=== PATIENT | male | born 1995 | race Caucasian/White ===

== ENCOUNTER 2017-08-09 10:52 | Emergency (ER) | payer MEDICAID, SELFPAY ==
[2017-08-09 12:03] VITALS: BP 131/78; PULSE 74; RESP 16; TEMP 37.3; O2SAT 99; BMI 21.1
--- NOTE | 2017-08-09 13:19 | PC.NURSE ---
pt reported he had to leave. On his way to [place] and needs to get there. Aware he is next to be seen. Says he can't wait not one minute longer . I saw his hand. Told him it was very serious he be seen immediately because appeared to need I&D and antibiotics. Says he won't have times when he gets to [place] because I am leaving with the . Aware the is going to be very concerned by the look of his hand. He doesn't believe so. Says there is no time to stay and no time to go elsewhere. Quickly discussed the risk of foregoing treatment to his hand hand he walked towards the door. Aware this can progress and require IV antibiotic, hospitalization and even if infection were to get into blood stream and cause sepsis. States I know all about it as he walks out the door .
--- NOTE | 2017-08-12 07:12 | PC.NURSE ---
0610 lab called with report of positive wound culture with mrsa. Sent home on Bactrim which is suseptible
== END 2017-08-09 13:17 | disposition left against medical advice (07) ==
LOC: UTC 10:59
PROVIDERS: Emergency Provider Nurse Practitioner Family
DX: Z53.29 Procedure and treatment not carried out because of patient's decision for other reasons (principal); L02.91 Cutaneous abscess, unspecified
CPT/HCPCS: 99202

== ENCOUNTER 2017-08-09 23:49 | Emergency (ER) | payer MEDICAID, SELFPAY ==
[2017-08-09 23:58] VITALS: BP 125/75; PULSE 91; RESP 18; TEMP 36.7; O2SAT 99; BMI 21.1
--- NOTE | 2017-08-10 00:16 | [facility].EDGENADL ---
ED Disposition Clinical Impression: Abscess of skin or subcutaneous tissue Qualifiers: Site of cutaneous abscess: extremity Site of cutaneous abscess of extremity: upper extremity Laterality: left Qualified Code(s): L02.414 - Cutaneous abscess of left upper limb Disposition: Home, Self-Care Condition on Discharge: Good Instructions: Boil Additional Instructions: call pcp about culture results and follow up Prescriptions: Minocycline HCl 100 mg PO BID #20 tab Sulfamethoxazole/Trimethoprim [Bactrim DS tablet] 1 each PO BID #20 tab - Critical Care Critical Care Time: No Attestation: On 08/09/17, the high probability of a clinically significant, sudden or life threatening deterioration of the following system(s) required my full and direct attention, intervention and personal management. The time I documented below is in addition to time spent performing reported procedures but includes the following listed in this critical care notation. Medical Decision Making - Medical Records Medical records reviewed: Yes: I reviewed the patient's medical records. Vital Signs: 08/09/17 23:58 Temperature 98.1 F Temperature Source Temporal Artery Scan Pulse Rate [Right Radial] 91 H Respiratory Rate 18 Blood Pressure [Right Arm] 125/75 Blood Pressure Mean [Right Arm] 91 Blood Pressure Source [Right Arm] Automatic Cuff Blood Pressure Position [Right Arm] Sitting 02 Sat by Pulse Oximetry 99 Oxygen Delivery Method Room Air - Lab Data Lab results reviewed: Yes: I reviewed the patient's lab results. Orders (Tests/Meds): ED MEDICATIONS Generic Name Dose Route Start Last Admin Trade Name Freq PRN Reason Stop Dose Admin Sodium Chloride 10 ml 08/10/17 00:23 Saline Flush 10ml Syringe IV 09/09/17 00:22 NEEDED PRN Maintain IV Site Vancomycin HCl 1,250 mg 08/10/17 00:24 Vancomycin 1000mg Vial IV 08/10/17 00:25 CONSULT PHARMACY ONE ORDERS Category Date Time Status CBC [Complete Blood Count Auto Diff] Stat Lab 08/10/17 00:30 Received CMP [Comprehensive Metabolic Panel] Stat Lab 08/10/17 00:30 Received Wound Culture and Gram Stain Stat Micro 08/10/17 00:10 Received - Jalil Inquiry Pt receiving controlled substance: No General Adult HPI - General Chief complaint: PAIN Stated complaint: Bite/Sore on Left Hand Inflamation Time Seen by Provider: 08/10/17 00:17 Mode of Arrival: Ambulatory Source of Information: Patient, Significant Other, Medical Record Limitations: No Limitations Description of Symptoms (Recalled from ER Triage Doc. by RN): PT REPORTS NOTICED A BUMP ON THE TOP OF HIS LEFT HAND. HE REPORTS THE AREA WAS RED, SWOLLEN, HOT AND PAINFUL - History of Present Illness HPI narrative: over the last 2 days has swelling and reddness with pain to lt hand with no known injury and no def bite and denied iv drug use Onset (ago): day(s) Location: left, upper extremity Severity: moderate - Related Data Previous Rx's Medication Instructions Recorded Minocycline HCl 100 mg PO BID #20 tab 08/10/17 Sulfamethoxazole/Trimethoprim 1 each PO BID #20 tab 08/10/17 [Bactrim DS tablet] Allergies Allergy/AdvReac Type Severity Reaction Status Date / Time No Known Allergies Allergy Verified 08/10/17 00:[address] [facility] History I have reviewed the patient's past medical history: Yes - *Social History Alcohol Intake: current Alcohol Intake Frequency:: holidays/special occasions only - Psychiatric History Expresses thoughts of harming self/others: None Suicide Plan Description: No Plan ROS Obtained: Yes All systems reviewed & no additional complaints except as noted - Constitutional Denies fever(s) - Eyes Denies change in vision - Cardiovascular Denies chest pain, Denies chest pain at rest - Respiratory Denies cough - Gastrointestinal Denies abdominal pain - Musculoskeletal Denies joint pain - Integumentary/Breasts Reports redness, Reports wo
--- NOTE | 2017-08-10 00:19 | ED_ITS ---
ED Disposition Clinical Impression: Abscess of skin or subcutaneous tissue Qualifiers: Site of cutaneous abscess: extremity Site of cutaneous abscess of extremity: upper extremity Laterality: left Qualified Code(s): L02.414 - Cutaneous abscess of left upper limb Disposition: Home, Self-Care Condition on Discharge: Good Instructions: Boil Additional Instructions: call pcp about culture results and follow up Prescriptions: Minocycline HCl 100 mg PO BID #20 tab Sulfamethoxazole/Trimethoprim [Bactrim DS tablet] 1 each PO BID #20 tab - Critical Care Critical Care Time: No Attestation: On 08/09/17, the high probability of a clinically significant, sudden or life threatening deterioration of the following system(s) required my full and direct attention, intervention and personal management. The time I documented below is in addition to time spent performing reported procedures but includes the following listed in this critical care notation. Medical Decision Making - Medical Records Medical records reviewed: Yes: I reviewed the patient's medical records. Vital Signs: 08/09/17 23:58 Temperature 98.1 F Temperature Source Temporal Artery Scan Pulse Rate [Right Radial] 91 H Respiratory Rate 18 Blood Pressure [Right Arm] 125/75 Blood Pressure Mean [Right Arm] 91 Blood Pressure Source [Right Arm] Automatic Cuff Blood Pressure Position [Right Arm] Sitting 02 Sat by Pulse Oximetry 99 Oxygen Delivery Method Room Air - Lab Data Lab results reviewed: Yes: I reviewed the patient's lab results. Orders (Tests/Meds): ED MEDICATIONS Generic Name Dose Route Start Last Admin Trade Name Freq PRN Reason Stop Dose Admin Sodium Chloride 10 ml 08/10/17 00:23 Saline Flush 10ml Syringe IV 09/09/17 00:22 NEEDED PRN Maintain IV Site Vancomycin HCl 1,250 mg 08/10/17 00:24 Vancomycin 1000mg Vial IV 08/10/17 00:25 CONSULT PHARMACY ONE ORDERS Category Date Time Status CBC [Complete Blood Count Auto Diff] Stat Lab 08/10/17 00:30 Received CMP [Comprehensive Metabolic Panel] Stat Lab 08/10/17 00:30 Received Wound Culture and Gram Stain Stat Micro 08/10/17 00:10 Received - Jalil Inquiry Pt receiving controlled substance: No General Adult HPI - General Chief complaint: PAIN Stated complaint: Bite/Sore on Left Hand Inflamation Time Seen by Provider: 08/10/17 00:17 Mode of Arrival: Ambulatory Source of Information: Patient, Significant Other, Medical Record Limitations: No Limitations Description of Symptoms (Recalled from ER Triage Doc. by RN): PT REPORTS NOTICED A BUMP ON THE TOP OF HIS LEFT HAND. HE REPORTS THE AREA WAS RED, SWOLLEN , HOT AND PAINFUL - History of Present Illness HPI narrative: over the last 2 days has swelling and reddness with pain to lt hand with no known injury and no def bite and denied iv drug use Onset (ago): day(s) Location: left, upper extremity Severity: moderate - Related Data Previous Rx's Medication Instructions Recorded Minocycline HCl 100 mg PO BID #20 tab 08/10/17 Sulfamethoxazole/Trimethoprim 1 each PO BID #20 tab 08/10/17 [Bactrim DS tablet] Allergies Allergy/AdvReac Type Severity Reaction Status Date / Time No Known Allergies Allergy
--- NOTE | 2017-08-10 00:35 | PC.NURSE ---
SPOKE WITH DEBORA IN PHARMACY RELATED TO DOSE AT 0020
[2017-08-10 00:49] LABS: Basophils # 0.1 K/mm3 (0-0.2); Basophils % 0.5 % (0.1-2.0); Eosinophils # 0.3 K/mm3 (0.0-0.4); Hematocrit 44.8 % (42.0-52.0); Hemoglobin 15.2 g/dL (14.1-18.0); Lymphocytes # 3.6 K/mm3 (0.7-4.5); Mean Corpuscular HGB Conc 33.9 g/dL (31.8-35.4); Mean Corpuscular Hemoglobin 29.4 pg (27.0-31.2); Mean Corpuscular Volume 86.7 fl (80-94); Mean Platelet Volume 6.9 fl (7.4-10.4); Monocytes % 7.9 % (1.7-9.3); Neutrophils # 7.9 K/mm3 (1.8-7.8); Neutrophils % 61.6 % (37.0-80.0); Platelet Count 292 K/mm3 (142-424); Red Blood Count 5.17 M/mm3 (4.60-6.20); Red Cell Distribution Width 11.9 % (11.5-17.5); White Blood Count 12.8 K/mm3 (4.8-10.8)
--- NOTE | 2017-08-10 00:50 | PC.NURSE ---
VANCOMYCIN 1250 MG IV INFUSING AT THIS TIME STARTED 0040.
[2017-08-10 01:00] LABS: Alanine Aminotransferase 20 U/L (12-78); Albumin Level 4.4 gm/dL (3.4-5.0); Albumin/Globulin Ratio 1.3 (1.1-1.8); Alkaline Phosphatase 64 U/L (46-116); Anion Gap 10.1 mEq/L (5-15); Aspartate Amino Transferase 10 U/L (15-37); Bilirubin,Total 0.4 mg/dL (0.2-1.0); Blood Urea Nitrogen 14 mg/dL (7-18); Carbon Dioxide 29 mmol/L (21.0-32.0); Chloride 101 mmol/L (98-107); Creatinine Clearance Estimated 104 mg/ml (0-300); Creatinine,Serum 0.96 mg/dL (0.70-1.30); Estimated Glomerular Filt Rate > 60 ml/min (>60); GFR (African American) > 60 ML/MIN (>60); Globulin 3.4 gm/dl (1.3-3.2); Glucose 91 mg/dL (74-106); Potassium 3.1 mmoL/L (3.5-5.1); Sodium 137 mmol/L (136-145); Total Protein,Serum 7.8 gm/dL (6.4-8.2)
--- NOTE | 2017-08-10 01:53 | PC.NURSE ---
VANCOMYCIN STOPPED WHEN PT REPORTED ITCHING AND REDNESS TO NECK AND CHEST. VITAL SIGNS 123/68 78 14 100% AND 98.8. NO SOA REPORTED. NOTIFID
[2017-08-10 01:57] VITALS: BP 123/68; PULSE 78; RESP 14; TEMP 37.1; O2SAT 100
--- NOTE | 2017-08-10 02:28 | PC.NURSE ---
PTS CLAUDE IS AT BEDSIDE AND REPORTS SHE WILL BE DRIVING HOME.
== END 2017-08-10 02:39 | disposition home or self-care (01) ==
PROVIDERS: Emergency Provider Emergency Medicine
DX: L02.414 Cutaneous abscess of left upper limb (principal)
CPT/HCPCS: 80053; 85025; 87070; 87077; 87186; 87205; 96374; 96375; 99283; J3370